=== PATIENT | female | born 1950 | race Caucasian/White ===

== ENCOUNTER 2016-07-11 18:30 | Emergency (ER) | payer OTHER ==
[~2016-07-11] VITALS: Ht 157.5 cm; Wt 97.8 kg
[~2016-07-11 18:30] MED LIST: ALBU1NEB10 INH; ALBUAER19 INH; CHOL100010 PO; CZR50 PO; FENO54TA PO; IBUP-1428 PO; INSUINJ12 SQ; IPRA1AER2 PO; LPT/20 PO; MAGN400T6 PO; METF-384 PO; OMEP20CA9 PO; OXCA300T2 PO; OXGN; PREG225C PO; TPRSR/50 PO; VENL75CA73 PO
[2016-07-11 18:37] VITALS: TEMP 37.3; Ht 157.5 cm; Wt 97.8 kg
--- NOTE | 2016-07-11 20:40 | EMERGENCY ROOM VISIT NOTE ---
History Report prepared by Karrie: Harry Lagunas Under the Supervision of: Dr. Avni Dodd M.D. First contact with patient: 20:27 Chief Complaint: URINARY SYMPTOMS Stated Complaint: LIGHTHEADED, BLURRED VISION, TREMBLING,BLADDER INF Nursing Triage Summary: Pt states, "I have been twitching and shaking. All I want to do is sleep. I have dizziness, nausea and blurred vision. I also have things wrong with my bladder that I haven't addressed. In 1979 I had cancer in my uterus and cervix. I had to start wearing diapers. I was in the hospital about 6 mos. ago and I had a bacteria or fungal infection in my bladder. I was in the hospital for 6 days. I was supposed to f/u with the drs, but my friends car broke down and I couldn't. I have a urine infection almost every month. The last time they gave me abx, they called me and told me I don't have an infection. I have a 9 mm kidney stone. Last night I was pretty unresponsive. My son wanted me to come, but I wouldn't. It's a little better today, but something still isn't right. I know something is wrong and I'm scared." History of Present Illness The patient is a 66 year old female who presents to the Emergency Room with complaints of persistent twitching and shaking that started years ago but has become increasingly worse over the past 3 days. Associated symptoms include blurred vision, urinary frequency, "pressure" while urinating, nausea and dizziness. The patient reports an episode of "unresponsiveness" last night. Her son wanted her to come into the ED at that time but she states that she did not want to. The patient has a history of diabetes. Her most recent blood sugar reading was 292. The patient adds that she has an extensive history of UTIs and yeast infections. Source of History: patient Onset: Started years ago, increasingly worse past 3 days Position: other (Global ) Timing: other (Persistent) Modifying Factors (Relieving): other (None) Associated Symptoms: + nausea, + urinary symptoms Review of Systems See HPI for pertinent positives & negatives. A total of 10 systems reviewed and were otherwise negative. Past Medical & Surgical Medical Problems: (1) CAD (coronary artery disease) (2) COPD (chronic obstructive pulmonary disease) (3) Depression (4) Diabetes mellitus (5) Hx of urosepsis (6) Hypolipidemia (7) IBS (irritable bowel syndrome) (8) Peripheral neuropathy (9) TMJ disease (10) Trigeminal neuralgia Surgical Problems: (1) History of carpal tunnel release (2) History of hysterectomy (3) No pertinent past surgical history Family History Unknown due to adoption Social History Smoking Status: Current Every Day Smoker Drug Use: none Marital Status: other Housing Status: lives with family Occupation Status: unemployed Current/Historical Medications Scheduled Atorvastatin (Atorvastatin Calcium), 20 MG PO DAILY Cholecalciferol (Cvs D3), 2,000 INTERUNIT PO DAILY Fluconazole (Diflucan), 150 MG PO WK Ibuprofen (Motrin), 800 MG PO Q6 Insulin Glargine (Lantus Solostar), 62 UNITS SC QPM Ipratropium-Albuterol (Combivent Respimat), 1 INHA PO QID Losartan Potassium (Losartan Potassium), 50 MG PO DAILY Magnesium Oxide (Mag-Ox), 400 MG PO BID Metformin Hcl (Glucophage), 1,000 MG PO BID Metoprolol Succinate (Metoprolol Succinate ER), 50 MG PO DAILY Omeprazole (Prilosec), 20 MG PO DAILY Oxcarbazepine (Trileptal), 750 MG PO BID Oxygen (Oxygen), 2.5-4 LITERS NA prn Pregabalin (Lyrica), 225 MG PO BID Sitagliptin (Januvia), 100 MG PO DAILY Sulfa/Trimethoprim (Bactrim Ds 800MG/160MG), 1 TAB PO BID Venlafaxine Hcl (Venlafaxine Extended Rel), 75 MG PO DAILY Scheduled PRN Albuterol Sulf (Albuterol Sulfate 0.083% For Inh), 3 ML INH QID PRN for SOB/ Wheezing Allergies Coded Allergies: Iodinated Diagnostic Agents (Verified Allergy, Unknown, unknown, 07/11/16) Loop Diuretics (Unverified Adverse Reaction, Intermediate, Mental status changes, 07/11/16) Physical Exam Vital Signs Date Time Temp Pulse Resp B/P Pulse Ox O2 Delivery O2 Flow Rate FiO2 07/11/16 22:06 71 22 135/66 92 Room Air 07/11/16 20:45 76 18 133/77 93 Room Air 07/11/16 18:37 37.3 80 18 138/79 89 Room Air Physical Exam GENERAL: Patient smells of cigarettes. Unkempt appearing. In no acute distress. HEENT: No acute trauma, normocephalic atraumatic, mucous membranes moist, no nasal congestion, no scleral icterus. NECK: No stridor, no adenopathy, no meningismus, trachea is midline. LUNGS: No dyspnea. Clear to auscultation and equal bilaterally. No wheeze, no rhonchi. HEART: Regular rate and rhythm. No murmurs, rubs, gallops appreciated. ABDOMEN: Soft, nontender, bowel sounds positive, no masses appreciated, no peritonitis. BACK: No midline tenderness, no CVA tenderness EXTREMITIES: Normal motion all extremities, no cyanosis, no edema. NEUROLOGIC: Alert and oriented, no acute motor or sensory deficits, no focal weakness, cranial nerves grossly intact. SKIN: No rash, no jaundice, no diaphoresis. Medical Decision & Procedures ER Provider Diagnostic Interpretation: Radiology results and stated below per my review and radiologist interpretation: CT SCAN OF THE BRAIN WITHOUT IV CONTRAST CLINICAL HISTORY: Nausea and dizziness. Blurry vision. COMPARISON STUDY: CT of the brain dated 01/08/2015. TECHNIQUE: Unenhanced axial CT scan of the brain is performed from the vertex to the skull base. CT DOSE: 601.98 mGy.cm FINDINGS: Brain parenchyma: There are age-related involutional changes noting minimal subcortical and periventricular microangiopathic change. There is no hemorrhage, mass effect, or evidence of acute territorial ischemia by CT criteria. Knowles-white matter is preserved. No extra-axial fluid collection is seen. Ventricles, sulci, cisterns: Prominent secondary to involutional change. Intracranial vasculature: There is atherosclerotic calcification of the cavernous carotid arteries. Calvarium: Unremarkable. Sinuses and mastoids: The visualized paranasal sinuses are clear. The mastoid air cells are well pneumatized. Orbits: The bony orbits are grossly intact. IMPRESSION: There is no hemorrhage, mass effect, or evidence of acute territorial ischemia by CT criteria. Electronically signed by: Travis Siegel M.D. 07/11/2016 9:17 PM Dictated Date/Time: 07/11/2016 9:15 PM SINGLE VIEW CHEST CLINICAL HISTORY: Generalized weakness. FINDINGS: An AP, portable, upright chest radiograph is compared to study dated 11/25/2015. The examination is degraded by portable technique, large body habitus, and apical lordotic positioning. The heart is enlarged and there is atherosclerotic calcification of the thoracic aorta. The pulmonary vasculature is noncongested. Chronic interstitial thickening is unchanged. No airspace consolidation, large pleural effusion, or pneumothorax is seen. The skeletal structures are osteopenic. The bony thorax is grossly intact. IMPRESSION: Cardiomegaly with no active disease in the chest. Electronically signed by: Travis Siegel M.D. 07/11/2016 9:09 PM Dictated Date/Time: 07/11/2016 9:07 PM Laboratory Results 07/11/16 20:48 Red Blood Count 4.50, Mean Corpuscular Volume 96.0, Mean Corpuscular Hemoglobin 31.8, Mean Corpuscular Hemoglobin Concent 33.1, Mean Platelet Volume 10.9, Neutrophils (%) (Auto) 65.5, Lymphocytes (%) (Auto) 26.7, Monocytes (%) (Auto) 4.8, Eosinophils (%) (Auto) 2.2, Basophils (%) (Auto) 0.4, Neutrophils # (Auto) 7.60, Lymphocytes # (Auto) 3.10, Monocytes # (Auto) 0.56, Eosinophils # (Auto) 0.26, Basophils # (Auto) 0.05 07/11/16 20:48 Test 07/11/16 20:48 White Blood Count 11.62 K/uL (4.8-10.8) Red Blood Count 4.50 M/uL (4.2-5.4) Hemoglobin 14.3 g/dL (12.0-16.0) Hematocrit 43.2 % (37-47) Mean Corpuscular Volume 96.0 fL (80-100) Mean Corpuscular Hemoglobin 31.8 pg (25-34) Mean Corpuscular Hemoglobin Concent 33.1 g/dl (32-36) Platelet Count 194 K/uL (130-400) Mean Platelet Volume 10.9 fL (7.4-10.4) Neutrophils (%) (Auto) 65.5 % Lymphocytes (%) (Auto) 26.7 % Monocytes (%) (Auto) 4.8 % Eosinophils (%) (Auto) 2.2 % Basophils (%) (Auto) 0.4 % Neutrophils # (Auto) 7.60 K/uL (1.4-6.5) Lymphocytes # (Auto) 3.10 K/uL (1.2-3.4) Monocytes # (Auto) 0.56 K/uL (0.11-0.59) Eosinophils # (Auto) 0.26 K/uL (0-0.5) Basophils # (Auto) 0.05 K/uL (0-0.2) RDW Standard Deviation 52.7 fL (36.4-46.3) RDW Coefficient of Variation 14.8 % (11.5-14.5) Immature Granulocyte % (Auto) 0.4 % Immature Granulocyte # (Auto) 0.05 K/uL (0.00-0.02) Urine Color YELLOW Urine Appearance CLOUDY (CLEAR) Urine pH 5.0 (4.5-7.5) Urine Specific [place] 1.019 (1.000-1.030) Urine Protein 2+ (NEG) Urine Glucose (UA) TRACE (NEG) Urine Ketones NEG (NEG) Urine Occult Blood TRACE (NEG) Urine Nitrite NEG (NEG) Urine Bilirubin NEG (NEG) Urine Urobilinogen NEG (NEG) Urine Leukocyte Esterase LARGE (NEG) Urine WBC (Auto) >30 /hpf (0-5) Urine RBC (Auto) 0-4 /hpf (0-4) Urine Hyaline Casts (Auto) 0 /lpf (0-5) Urine Epithelial Cells (Auto) >30 /lpf (0-5) Urine Bacteria (Auto) 1+ (NEG) Urine Yeast (Auto) BUDDING (NONE PRSENT) Anion Gap 6.0 mmol/L (3-11) Est Creatinine Clear Calc Drug Dose 67.1 ml/min Estimated GFR () 77.2 Estimated GFR (Non- 66.6 BUN/Creatinine Ratio 25.0 (10-20) Calcium Level 9.7 mg/dl (8.5-10.1) Total Bilirubin 0.2 mg/dl (0.2-1) Direct Bilirubin < 0.1 mg/dl (0-0.2) Aspartate Amino Transf (AST/SGOT) 22 U/L (15-37) Alanine Aminotransferase (ALT/SGPT) 32 U/L (12-78) Alkaline Phosphatase 79 U/L (45-117) Troponin I 0.021 ng/ml (0-0.045) Total Protein 7.6 gm/dl (6.4-8.2) Albumin 3.3 gm/dl (3.4-5.0) Thyroid Stimulating Hormone (TSH) 2.020 uIu/ml (0.300-4.500) Laboratory results as reviewed by me. Medications Administered Medications (Trade) Dose Ordered Sig/Aliza Route Start Time Stop Time Status Last Admin Dose Admin Sodium Chloride (Nss 500ml) 500 ml @ 999 mls/hr Q31M STAT IV 07/11/16 21:33 07/11/16 22:03 DC 07/11/16 21:25 999 MLS/HR Trimethoprim/ Sulfamethoxazole (Septra Ds 800/ 160MG Tab) 1 tab NOW STAT PO 07/11/16 21:48 07/11/16 21:51 DC 07/11/16 22:11 1 TAB Fluconazole (Diflucan Tab) 150 mg NOW ONCE PO 07/11/16 22:00 07/11/16 22:01 DC 07/11/16 22:11 150 MG ECG Indication: weakness Rate (beats per minute): 65 Rhythm: normal sinus Findings: no acute ischemic change, no ectopy, other (Bifascicular block) ED Course 2030: The patient was evaluated in room B11. A complete history and physical exam was performed. 2132: Ordered Sodium Chloride 500 ml @ 999 mls/hr IV. 2147: Ordered Trimethoprim/Sulfamethoxazole 1 tablet PO. 2151: I updated the patient of her test results and the treatment plan. She states that she did well Bactrim and Diflucan. She requests discharge. 2199: Ordered Fluconazole 150 mg PO. 2204: Reevaluated the patient. Discussed results and discharge instructions: She verbalized understanding and agreement. The patient is ready for discharge. Medical Decision Differential diagnosis: Etiologies such as UTI, metabolic, infection, hypo/hyperglycemia, electrolyte abnormalities, cardiac sources, intracerebral event, toxicologic, neurologic, as well as others were entertained. 66 yr old female arrives with complaint of not feeling well with wide range of complaints of vague and varying degrees. UA consistent with infection and with yeast seems reasonable treating as UTI previous susceptible to bactrim and do weekly diflucan while on abx. She has pretty much normal work-up otherwise. She is requesting discharge and not interested in staying in hospital. She has normal CT head, no neuro deficits and denies stroke symptoms. Discussed importance of proper BG management. Impression Primary Impression: Urinary tract infection Additional Impression: Yeast cystitis Scribe Attestation The scribe's documentation has been prepared under my direction and personally reviewed by me in its entirety. I confirm that the note above accurately reflects all work, treatment, procedures, and medical decision making performed by me. Departure Information Dispostion Home / Self-Care Prescriptions Fluconazole (DIFLUCAN) 150 Mg Tab 150 MG PO WK, #2 TAB Prov: Avni Dodd M.D. 07/11/16 Sulfa/Trimethoprim (Bactrim Ds 800MG/160MG) Tab 1 TAB PO BID for 7 Days, #14 TAB Prov: Avni Dodd M.D. 07/11/16 Referrals Indio Brooks M.D. (MEDICAL) (PCP) Forms HOME CARE DOCUMENTATION FORM, IMPORTANT VISIT INFORMATION Patient Instructions [facility], UTI Problem Qualifiers Primary Impression: Urinary tract infection Urinary tract infection type: acute cystitis Hematuria presence: without hematuria Qualified Codes: N30.00 - Acute cystitis without hematuria
[2016-07-11] MEDS ORDERED: CHOL200019 PO (21:00)
[2016-07-11] MEDS ORDERED: INSDGIPEN SC (21:00)
[2016-07-11] MEDS ORDERED: SITA1TAB27 PO (21:00)
[2016-07-11 21:02] LABS: BASO % 0.4 %; BASO ABS # 0.05 K/uL (0-0.2); COMPLETE YES; EOS % 2.2 %; HEMATOCRIT 43.2 % (37-47); IG% 0.4 %; LYMPH % 26.7 %; MEAN CORPUSCULAR HEMOGLOBIN 31.8 pg (25-34); MEAN CORPUSCULAR HGB CONC 33.1 g/dl (32-36); MEAN PLATELET VOLUME 10.9 fL (7.4-10.4); MONO % 4.8 %; NEUT % 65.5 %; PLATELET COUNT 194 K/uL (130-400); WHITE BLOOD COUNT 11.62 K/uL (4.8-10.8)
[2016-07-11 21:04] LABS: URINE APPEARANCE CLOUDY (CLEAR); URINE BILIRUBIN NEG (NEG); URINE COLOR YELLOW; URINE EPITHELIAL CELL AUTO >30 /lpf (0-5); URINE NITRITE NEG (NEG); URINE SPECIFIC GRAVITY 1.019 (1.000-1.030); UROBILINOGEN NEG (NEG); ZZUR CULT IF INDIC CLEAN CATCH YES
[2016-07-11 21:09] LABS: MANUAL MICROSCOPIC REQUIRED? NO; REVIEW REQ? YES
--- NOTE | 2016-07-11 21:10 | DIAGNOSTIC IMAGING REPORT ---
SINGLE VIEW CHEST CLINICAL HISTORY: Generalized weakness. FINDINGS: An AP, portable, upright chest radiograph is compared to study dated 11/25/2015. The examination is degraded by portable technique, large body habitus, and apical lordotic positioning. The heart is enlarged and there is atherosclerotic calcification of the thoracic aorta. The pulmonary vasculature is noncongested. Chronic interstitial thickening is unchanged. No airspace consolidation, large pleural effusion, or pneumothorax is seen. The skeletal structures are osteopenic. The bony thorax is grossly intact. IMPRESSION: Cardiomegaly with no active disease in the chest. Electronically signed by: Travis Siegel M.D. 07/11/2016 9:09 PM Dictated Date/Time: 07/11/2016 9:07 PM
--- NOTE | 2016-07-11 21:18 | DIAGNOSTIC IMAGING REPORT ---
CT SCAN OF THE BRAIN WITHOUT IV CONTRAST CLINICAL HISTORY: Nausea and dizziness. Blurry vision. COMPARISON STUDY: CT of the brain dated 01/08/2015. TECHNIQUE: Unenhanced axial CT scan of the brain is performed from the vertex to the skull base. CT DOSE: 601.98 mGy.cm FINDINGS: Brain parenchyma: There are age-related involutional changes noting minimal subcortical and periventricular microangiopathic change. There is no hemorrhage, mass effect, or evidence of acute territorial ischemia by CT criteria. Knowles-white matter is preserved. No extra-axial fluid collection is seen. Ventricles, sulci, cisterns: Prominent secondary to involutional change. Intracranial vasculature: There is atherosclerotic calcification of the cavernous carotid arteries. Calvarium: Unremarkable. Sinuses and mastoids: The visualized paranasal sinuses are clear. The mastoid air cells are well pneumatized. Orbits: The bony orbits are grossly intact. IMPRESSION: There is no hemorrhage, mass effect, or evidence of acute territorial ischemia by CT criteria. Electronically signed by: Travis Siegel M.D. 07/11/2016 9:17 PM Dictated Date/Time: 07/11/2016 9:15 PM
[2016-07-11 21:24] LABS: ALT/SGPT 32 U/L (12-78); BLOOD UREA NITROGEN 23 mg/dl (7-18); CALCIUM 9.7 mg/dl (8.5-10.1); CARBON DIOXIDE 30 mmol/L (21-32); CHLORIDE 105 mmol/L (98-107); GLUCOSE 131 mg/dl (70-99); POTASSIUM 4.3 mmol/L (3.5-5.1); SODIUM 141 mmol/L (136-145)
[2016-07-11] MEDS ORDERED: SODIUM CHLORIDE 0.9% 500ML 500 ML IV STA (21:33)
[2016-07-11 21:34] LABS: ALKALINE PHOSPHATASE 79 U/L (45-117); AST/SGOT 22 U/L (15-37)
[2016-07-11] MEDS ORDERED: SULFAMETHOXAZOLE/TRIMETHOPRIM DS 800/160MG TAB PO STA (21:48)
[2016-07-11] MEDS ORDERED: SULF800T23 PO (21:53)
[2016-07-11] MEDS ORDERED: FLUC150T54 PO (21:53)
[2016-07-11] MEDS ORDERED: FLUCONAZOLE 50 MG TAB PO ONE (22:00)
[2016-07-11 22:06] VITALS: BP 135/66; PULSE 71; O2SAT 92
== END 2016-07-11 22:18 | disposition home or self-care (01) ==
LOC: C.EDB 18:31
DX: N39.0 Urinary tract infection, site not specified (principal); B37.9 Candidiasis, unspecified; Z87.440 Personal history of urinary (tract) infections; I25.10 Atherosclerotic heart disease of native coronary artery without angina pectoris; J44.9 Chronic obstructive pulmonary disease, unspecified; F32.9 Major depressive disorder, single episode, unspecified; K58.9 Irritable bowel syndrome, unspecified; E11.43 Type 2 diabetes mellitus with diabetic autonomic (poly)neuropathy; G50.0 Trigeminal neuralgia; Z90.710 Acquired absence of both cervix and uterus; F17.210 Nicotine dependence, cigarettes, uncomplicated; Z79.899 Other long term (current) drug therapy; Z79.4 Long term (current) use of insulin